=== PATIENT | female | born 1975 | race Caucasian/White ===

== ENCOUNTER 2023-09-07 17:57 | Emergency (ER) | payer OTHER ==
[~2023-09-07] VITALS: Ht 162.6 cm; Wt 91.8 kg
[2023-09-07 18:51] VITALS: RESP 16; O2SAT 96
[2023-09-07] MEDS: TETanus/Pertussis (Acell)/Diphther VAC/PF (Tdap-Adult) 0.5ml syringe IMVAC ONE (20:17)
[2023-09-07 20:28] VITALS: BP 155/101; PULSE 78; TEMP 97.9
== END 2023-09-07 20:34 | disposition home or self-care (01) ==
LOC: ER 17:58
DX: S61.215A Laceration without foreign body of left ring finger without damage to nail, initial encounter (principal); W26.8XXA Contact with other sharp object(s), not elsewhere classified, initial encounter; Y93.89 Activity, other specified; Y92.89 Other specified places as the place of occurrence of the external cause; Y99.8 Other external cause status
CPT/HCPCS: 12001; 90471; 90715; 99283; J7030; A6258; A6449